=== PATIENT | female | born 1970 | race African-American/Black ===

== ENCOUNTER 2018-07-01 21:10 | Emergency (ER) | payer SELFPAY ==
[~2018-07-01] VITALS: Ht 167.6 cm; Wt 74.8 kg
[2018-07-01] MEDS ORDERED: IV NORMAL SALINE 1000ML BAG 1,000 ML IV ONE ×2 (21:45→23:00)
[2018-07-01] MEDS ORDERED: ACETAMINOPHEN 500 MG TABLET PO ONE (21:45)
[2018-07-01] MEDS ORDERED: KETOROLAC 30 MG/ML VIAL. IV ONE (21:45)
[2018-07-01 22:12] VITALS: BP 131/83
--- NOTE | 2018-07-01 22:23 | PHYS DOC ---
Past Medical History Past Medical History: No Pertinent History, Other Additional Past Medical Histor: skin disease Past Surgical History: Tonsillectomy Additional Past Surgical Histo: L shoulder, cervical surgery C-6, C-7 Alcohol Use: None Drug Use: None Adult General Chief Complaint Chief Complaint: FEVER HPI HPI Patient is a 47 year old female who presents with flu symptoms. Patient has been ill over the last 24 hours. She developed a sore throat and a persistent cough that is nonproductive of sputum. She also has general myalgias and body aches. General malaise. No nausea or vomiting. Denies abdominal pain. She does complain of a sore throat as well. Diffuse headaches. No ill family members. No recent travel. She has some upper airway congestion as well. Review of Systems Review of Systems Constitutional: + fever and chills Eyes: Denies change in visual acuity, redness, or eye pain HENT: Denies nasal congestion. + sore throat Respiratory: + cough Cardiovascular: No additional information not addressed in HPI GI: Denies abdominal pain : Denies dysuria or hematuria Musculoskeletal: Denies back pain Integument: Denies rash or skin lesions Neurologic: Denies focal neuro complaints All other systems were reviewed and found to be within normal limits, except as documented in this note. Current Medications Current Medications Current Medications Medications (Trade) Dose Ordered Sig/Rae Start Time Stop Time Status Last Admin Dose Admin Acetaminophen (Tylenol) 1,000 mg 1X ONCE 07/01/18 21:45 07/01/18 21:46 DC 07/01/18 22:01 1,000 MG Ibuprofen (Motrin) 800 mg 1X ONCE 07/01/18 23:45 07/01/18 23:46 UNV Ketorolac Tromethamine (Toradol 30mg Vial) 30 mg 1X ONCE 07/01/18 21:45 07/01/18 21:46 DC 07/01/18 22:01 30 MG Sodium Chloride 1,000 ml @ 1,000 mls/hr 1X ONCE 07/01/18 23:00 07/01/18 23:59 07/01/18 22:55 1,000 MLS/HR Allergies Allergies Allergies Coded Allergies Type Severity Reaction Last Updated Verified No Known Drug Allergies 12/06/14 No Physical Exam Physical Exam Constitutional: Well developed, well nourished, no acute distress, non-toxic appearance HENT: Normocephalic, atraumatic, bilateral external ears normal, oropharynx moist, no oral exudates, nose normal, posterior oral pharynx is injected. No exudates. Eyes: PERRLA, EOMI Neck: Normal range of motion, no tenderness, supple Cardiovascular: mildly tachy with HR 115. no murmur Lungs & Thorax: Bilateral breath sounds clear Abdomen: Bowel sounds normal, soft, no tenderness Skin: Warm, dry, no erythema Back: No tenderness Extremities: no edema Neurologic: Alert and oriented X 3 Psychologic: Affect normal Current Patient Data Vital Signs Vital Signs Date Time Temp Pulse Resp B/P (MAP) Pulse Ox O2 Delivery O2 Flow Rate FiO2 07/01/18 22:56 95 07/01/18 22:43 101.2 101.2 07/01/18 22:12 131/83 (99) Room Air 07/01/18 21:23 20 93 Lab Values Laboratory Tests Test 07/01/18 21:49 Influenza Type A Antigen Positive (NEGATIVE) Influenza Type B Antigen Negative (NEGATIVE) EKG EKG [] Radiology/Procedures Radiology/Procedures [] Course & Med Decision Making Course & Med Decision Making Pertinent Labs and Imaging studies reviewed. (See chart for details) Patient is seen immediately on arrival to her room. She is in no acute distress but is noted to be febrile during the check in process. Her posterior oral pharynx is mildly injected. Her lungs are clear. She is nontoxic in appearance overall. Will check strep and rapid flu. We'll give IV fluids and medications for fever. 22:50: Repeat temp 101.2. 1 liter IVF complete. 2nd ordered.\\ 23:45: Patient resting comfortably. She is noted to have influenza on her lab panel. Her rapid strep screen is negative. Plan this evening is for discharge home. She is given instructions regarding fever control. She is provided some medications for pain. Rest at home. Note for work is also provided. Follow-up with primary care doctor or return to the emergency department for any new or worsening symptoms. Dragon Disclaimer Dragon Disclaimer This electronic medical record was generated, in whole or in part, using a voice recognition dictation system. Departure Departure Disposition: HOME, SELF-CARE Condition: IMPROVED Referrals: UNKNOWN PCP NAME (PCP) Scripts Hydrocodone/Apap 5-325 (NORCO 5-325 TABLET) 1 Each Tablet 1-2 EACH PO PRN Q6HRS PRN for severe pain, #15 as needed for pain Prov: RONNI SHERWOOD DO 07/01/18 Ibuprofen (IBUPROFEN) 800 Mg Tablet 800 MG PO PRN TID, #30 TAB take with food or milk to avoid upsetting stomach Prov: RONNI SHERWOOD DO 07/01/18 RONNI SHERWOOD DO Jul 01, 2018 22:23
[2018-07-01 22:27] LABS: INFLUENZA A PATIENT POSITIVE (NEGATIVE)
[2018-07-01 22:28] LABS: INFLUENZA B PATIENT NEGATIVE (NEGATIVE)
[2018-07-01 23:39] LABS: BILIRUBIN,URINE NEGATIVE (NEG); CLARITY,URINE CLEAR; COLOR,URINE YELLOW; NITRITE,URINE NEGATIVE (NEG); PROTEIN,URINE 100 mg/dL (NEG-TRACE); UROBILINOGEN,URINE 0.2 mg/dL (0.2 mg/dL)
[2018-07-01] MEDS ORDERED: HYDR-3164 PO (23:40)
[2018-07-01] MEDS ORDERED: IBUP-1060 PO (23:40)
[2018-07-01 23:49] LABS: BACTERIA,URINE MOD /HPF (0-FEW); RBC,URINE 0 /HPF (0-2); SQUAMOUS EPITHELIAL CELL,UR MANY /LPF
[2018-07-01] MEDS ORDERED: IBUPROFEN 400 MG TABLET. PO ONE (23:55)
== END 2018-07-02 00:14 | disposition home or self-care (01) ==
LOC: ER 21:10
DX: J02.9 Acute pharyngitis, unspecified (principal); R05 Cough; M79.18 Myalgia, other site; R51 Headache; R50.9 Fever, unspecified; Z90.89 Acquired absence of other organs; Z98.890 Other specified postprocedural states
CPT/HCPCS: 81001; 87070; 87804; 87880; 96374; 99283; J1885; J7030